=== PATIENT | male | born 1950 | race Caucasian/White ===

== ENCOUNTER → 2016-11-23 | Day surgery (SDC) | payer MEDICARE, MEDICAID ==
[2014-04-10 08:31] VITALS: BMI 25.4
[~2016-11-23] MED LIST: Albuterol/Ipratropium Neb 3 ML NEB NEB ONE; BUPIVACAINE 0.25% 30 ML VIAL ONE; BUPIVACAINE 0.25%-EPINEPHRINE 1:200,000 30 ML ONE; CEFAZOLIN 1 GM VIAL ONE; FENTANYL 100 MCG/2 ML VIAL IV PRN; FENTANYL 250 MCG/5 ML VIAL IV ONE; HYDROmorphone 1 MG INJECTION IV PRN; LABETALOL 20 MG/4 ML SYRINGE IV PRN; MEPERIDINE 25 MG/ML TUBEX IV PRN; METHYLPREDNISOLONE 125 MG/2 ML VIAL ONE; MIDAZOLAM 2 MG/2 ML VIAL IV ONE; ONDANSETRON HCL 4 MG ODT TAB PO PRN; ONDANSETRON HCL 4 MG/2 ML VIAL IV PRN; PROMETHAZINE 25 MG/ML VIAL IV PRN; PROPOFOL 200 MG/20 ML VIAL IV ONE; hydrALAZINE 20 MG/ML VIAL IV PRN
[2016-11-23 06:31] LABS: AUTOMATED BASOPHIL 0.7 % (0-2); AUTOMATED LYMPH 17.3 % (17-44); AUTOMATED MONOCYTE 9.7 % (3-10); AUTOMATED NEUTROPHIL 71.3 % (45-76); MPV 8.1 fL (7.4-10.4)
[2016-11-23 06:38] LABS: BLOOD UREA NITROGEN 14 MG/DL (9-20); CALCIUM 8.8 MG/DL (8.4-10.2); CALCULATED OSMOLALITY 267 MOs/Kg (270-290); CHLORIDE 102 mEq/L (98-107); GLUCOSE 106 MG/DL (70-99); SODIUM LEVEL 138 mEq/L (137-146)
--- NOTE | 2016-11-23 06:59 | SC.ANESPOS ---
Post-Anesthesia Note LOC: Fully Awake (Block still providing pain relief) Post-Anesthesia Assessment: Awake, Returned to Baseline, Hemodynamically Stable , Pain Control Adequate Phase I & II Recovery Complete: Yes Apparent Anesthesia Complication: No : N - Vital Signs Blood Pressure: 141/71 Pulse: 86 Resp Rate: 18 O2 Sat: 95 Temp: 98.3 F
--- NOTE | 2016-11-23 07:03 | HIM.ANES ---
Anesthesia Evaluation & Plan Diagnoses: OLECRANON BURSITIS, LEFT ELBOW (11/23/16) Consented Procedure: EXCISION OF OLECRANON BURSA LEFT ELBOW - Focused Review of Systems Cardiac History: Yes: Hx Cardiac Catheterization (1994 NO OCCLUSION PER PATIENT) , Hx Cardiac Disorders, Hx Abnormal Cholesterol/Hyperlipidemia HEENT: Yes: Hx Vision Problem (PRESCRIPTION GLASSES), Other HEENT Problems Respiratory: Yes: Hx Asthma, Hx Emphysema, Hx Chronic Obstructive Pulmonary Disease (COPD), Hx Pneumonia (2013) Gastrointestinal: Yes: Hx Gastroesophageal Reflux Disease (Controlled), Hx Gastrointestinal Disorders Neurological/Musculoskeletal: No: Hx Neurological Disorders Physiological: Yes Hx Mental/Emotional Disorders HX Other Psyco/Soc Problems: CHRONIC PAIN SYNDROME Blood/Autoimmune: No: Hx AIDS, Hx Hepatitis (type) Smoking Status: Heavy tobacco smoker (5 or more cigarettes/day or daily pipe/ cigar) Hx Chest Xray (date): Yes (2013 NO ACTIVE DISEASE) Surgical History: Yes: Appendectomy - Focused Physical Exam NPO since: 11/22/162099 Mallampati: Class III Thyromental Distance: Greater than 3 Neck: Full Range of Motion Dental: Removable Dental Work Cardiovascular/Chest: Normal Respiratory: Decreased breath sounds Any problems with anesthesia, including nausea and vomiting?: No Any relatives with a history of Malignant Hyperthermia?: No Does patient have a history of Malignant Hyperthermia?: No Beta Tori given (if appropriate): N/A Does the patient have a history of Motion Sickness-: No Other: Problem List Problem Status Onset Acute exacerbation of chronic obstructive airways disease Acute Pneumonia Acute Tobacco abuse Acute CBC/BMP/Other 11/23/16 06:05 11/23/16 06:05 Allergies Allergy/AdvReac Type Severity Reaction Status Date / Time No Known Allergies Allergy Verified 11/23/16 06:55 Home Medications Medication Instructions Recorded Last Taken Type Aspirin [Aspirin, Chewable] 81 mg PO DAILY 05/16/13 11/23/16 05:00 History Omeprazole [Prilosec] 20 mg PO DAILY 05/16/13 11/23/16 05:00 History Albuterol Sulfate [Proair Hfa] 1 - 2 puff INH Q4H PRN 04/10/14 11/23/16 05:00 History Budesonide/Formoterol Fumarate 2 puff INH BID 11/22/16 11/22/16 13:00 History [Symbicort 160-4.5 Mcg Inhaler] Oxycodone HCl [Oxycodone Immediate 10 mg PO Q6H PRN 11/22/16 11/22/16 08:00 History Release] Height and Weight Patient's height 6 ft 2 in Patient's weight 214 lb BMI 25.4 Vital Signs Temperature 98.3 F 11/23/16 06:59 Pulse Rate 86 11/23/16 06:59 Respiratory Rate 18 11/23/16 06:59 Blood Pressure 141/71 11/23/16 06:59 Pulse Oxygen Saturation 95 11/23/16 06:59 - Anesthetic Plan Anesthesia Type: Block Primary Anesthesia, MAC ASA Class: 3 -: I have examined this patient and reviewed the medical record. The patient has been assessed prior to anesthesia. Risks and benefits of anesthesia and anesthetic technique options have been discussed and all questions answered. The patient accepts the risk and desires me to proceed with the planned anesthetic.
--- NOTE | 2016-11-23 08:20 | HIM.ANESP ---
Procedure Note DATE OF PROCEDURE: 11/23/16 PREOPERATIVE DIAGNOSIS: Post-operative Pain Control. POSTOPERATIVE DIAGNOSIS: Same PROCEDURE: Brachial Plexus Block at Supraclavicular - LEFT PERFORMING PROVIDER: Jordan Calderon MD TIME OUT: [722] BLOCK START Time: [724] BLOCK STOP Time: [737] MEDICATIONS: Bupivacaine 0.25% 20 ml EPINEPHRINE 1:200,000 NEEDLE: EchoStim 21G 50MM STERILE BARRIERS: Cap, mask, sterile gloves. COMPLICATIONS: None. BLOOD LOSS: 0 cubic centimeters. PROCEDURE FINDINGS AND TECHNIQUE:At the request of the Operative Surgeon and patient, a Brachial Plexus Block was performed for primary anesthesia. Risk, benefits and alternatives of the procedure were explained. Informed consent was obtained and surgical site confirmed with patient and chart. Time out was performed. Pulse oximetry, EKG and BP monitoring were established.. The left neck was prepped and draped in a sterile manner. Skin anesthesia was obtained with 1% Xylocaine infiltration. The Brachial plexus was visualized by ultrasound and an image is appended. (see chart) An EchoStim needle was inserted in the proximity of the nerves. Under direct visualization local anesthetic was injected in incremental volumes of 5 ml with negative aspirations throughout. There was no pain on injection. B-Smart manometer used. After approx 10 min, sensory block was not fully achieved, so 15cc addition 0.25 % bupiv plus 1:200 epi was placed as an axillary block. Sensory block was adequate following. Patient tolerated the procedure well without complications and the case was continued under MAC anesthesia as was the request of patient/surgeon.
--- NOTE | 2016-11-23 09:05 | HIMOPRPT ---
DATE OF PROCEDURE: 11/23/16 PREOPERATIVE DIAGNOSIS: Chronic olecranon bursitis left elbow POSTOPERATIVE DIAGNOSIS: Same PROCEDURE: Open excision of olecranon bursa left elbow SURGEON: Néstor Loving D.O. Broach Grinder: Prem Mesa PAC ANESTHESIA: left upper extremity regional block + sedation ESTIMATED BLOOD LOSS: 1cc COMPLICATIONS: none DRAINS: none SPECIMENS: bursal tissue FINDING: as above DESCRIPTION OF PROCEDURE: Mr Dailey is a 66-year-old male with a history of chronic olecranon bursitis of his left elbow. He has complained of increased pain over the tip of the olecranon process secondary to his chronic bursitis. He has failed other conservative measures including the aspirations, injections, compressive dressings, rest and splinting. He has elected undergo operative excision of the olecranon bursa. All risks, benefits, and alternatives to the planned procedure were discussed with him. He did understand these risks and elected to proceed with the planned surgery. On the day of his procedure he was identified in the preop holding area and the left upper extremity was marked as correct operative side. He was then taken the operating room where successful left upper extremity supraclavicular plus axillary block was performed by anesthesia. Sedation was then performed. Patient received Ancef 2 g IV prior to incisions being made. He was positioned in the lateral position with the martinez bag. Axillary roll was placed and all bony prominences were well padded. Left upper extremity was then prepped and draped in sterile fashion. A time- out was performed, again identifying the correct patient and the left side as correct operative side. Left upper extremity was exsanguinated and the tourniquet was inflated. Planned skin incision was marked just radial to the tip of the olecranon overlying the mass. Incision was then made with a 15 blade through the dermal tissue. Metzenbaum scissors were then utilized to create soft tissue planes and to mobilize the entirety of the hypertrophic olecranon bursal mass. All hypertrophic bursal tissue was removed. Hemostasis was achieved with electric cautery no purulent tissue or signs of infection were noted. No bony changes to the olecranon. After thorough and complete bursectomy was performed the wound was thoroughly irrigated with sterile saline and closed with 2 O Vicryl interrupted sutures for the subcutaneous tissues and horizontal mattress 4 0 nylon sutures for the skin. The bursal tissue was sent to pathology. A bulky compressive dressing and posterior splint were applied at the end of the case. Skin was anesthetized with 0.25% Marcaine with epinephrine. The patient did tolerate this procedure well and he was transferred to the PACU in stable condition. alejandra Gregory was the operative admin assistant during the case. His assistance was required for patient positioning, prepping and draping, soft tissue retraction, wound closure, application of dressings and splint postoperatively
[2016-11-23 13:58] VITALS: BP 141/71; PULSE 86; TEMP 98.3
--- NOTE | 2016-11-24 16:24 | CAPUEKG ---
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
== END ==
LOC: SDC 05:43
PROVIDERS: ATTEND Orthopaedic Surgery
PROC: 0MB40ZZ Excision of Left Elbow Bursa and Ligament, Open Approach (ICD-10-PCS; principal; 2016-11-23 07:15)
DX: M70.22 Olecranon bursitis, left elbow (principal); J45.909 Unspecified asthma, uncomplicated; J43.9 Emphysema, unspecified; E78.5 Hyperlipidemia, unspecified; K21.9 Gastro-esophageal reflux disease without esophagitis; F17.210 Nicotine dependence, cigarettes, uncomplicated; F40.240 Claustrophobia; Z79.899 Other long term (current) drug therapy
CPT/HCPCS: 24105; 80048; 83880; 85025; 86850; 86900; 86901; 93005; 94640; J0171; J0690; J2550; J2930; J3010; J3490; J2250; S0020